=== PATIENT | female | born 1960 | race Two or more races ===

== ENCOUNTER 2018-10-08 12:02 | Emergency (ER) | payer OTHER ==
[2018-10-08 12:20] VITALS: BP 166/88; PULSE 92; TEMP 98.1; BMI 24.1
[2018-10-08] MEDS ORDERED: IBUPROFEN 400 MG TABLET (FP) PO ONE ×2 (13:07→13:16)
--- NOTE | 2018-10-08 13:07 | PDOC ---
History of Present Illness - General Chief Complaint: Pain, Acute Stated Complaint: LT KNEE PAIN Time Seen by Provider: 10/08/18 12:25 History Source: Patient Exam Limitations: Clinical Condition - History of Present Illness Initial Comments: 10/08/18 13:09 Patient with no significant past medical history present with complaint of three -day history of left knee pain and swelling to medial side of left knee status post twist in the on the curbside 3 days ago. Patient reported taking Motrin for pain yesterday. Reported increased pain with ambulation. Denies any other symptoms Timing/Duration: other (3 days) Past History - Past Medical History Allergies/Adverse Reactions: Allergies Allergy/AdvReac Type Severity Reaction Status Date / Time No Known Allergies Allergy Verified 10/08/18 12:13 Home Medications: Ambulatory Orders Diclofenac Sodium [Voltaren] 100 gm TP BID PRN #1 tube 10/08/18 Leg Brace [Knee Brace] 1 each MC DAILY #1 each 10/08/18 Naproxen 500 mg PO BID PRN #20 tablet 10/08/18 COPD: No - Surgical History Gastric Stapling: No - Immunization History Immunization Up to Date: No - Suicide/Smoking/Psychosocial Hx Smoking History: Current every day smoker Have you smoked in the past 12 months: Yes Number of Cigarettes Smoked Daily: 3 Information on smoking cessation initiated: No Hx Alcohol Use: No Drug/Substance Use Hx: No Review of Systems - Review of Systems Able to Perform ROS?: Yes Is the patient limited Croatian proficient: No Constitutional: No: Malaise, Weakness HEENTM: No: Symptoms Reported Respiratory: No: Symptoms reported Cardiac (ROS): No: Symptoms Reported Musculoskeletal: Yes: Symptoms Reported, See HPI, Joint Pain (left knee pain), Joint Swelling (medial aspect of left knee), Muscle Pain (medial aspect of left knee) Integumentary: No: Bruising, Change in Color Neurological: No: Numbness, Paresthesia, Tingling All Other Systems: Reviewed and Negative *Physical Exam - Vital Signs Last Vital Signs Temp Pulse Resp BP Pulse Ox 98.1 F 92 H 16 166/88 97 10/08/18 12:10 10/08/18 12:10 10/08/18 12:10 10/08/18 12:10 10/08/18 12:10 - Physical Exam Comments: 10/08/18 13:15 GENERAL: Well developed, well nourished. Awake and alert in mild acute distress. CARDIOVASCULAR: Regular rate and rhythm. No murmurs, rubs, or gallops. PULMONARY: No evidence of respiratory distress. MUSCULOSKELETAL : mild tenderness medial aspect of left knee no soft tissue swelling over medial aspect of patella of left knee. No bony deformities EXTREMITIES: No cyanosis. No clubbing. No edema. No calf tenderness. SKIN: Warm and dry. Normal capillary refill. No bruising or ecchymosis of left knee. NEUROLOGICAL: Alert, awake, appropriate. No motor deficits in the lower extremities. Gait is normal without ataxia. PSYCHIATRIC: Cooperative. Good eye contact. Appropriate mood and affect. General Appearance: Yes: Nourished, Appropriately Dressed, Mild Distress ED Treatment Course - RADIOLOGY Radiology Studies Ordered: Category Date Time Status KNEE 3 POS-LEFT [RAD] Stat Radiology 10/08/18 12:26 Completed Medical Decision Making - Medical Decision Making 10/08/18 13:12 Patient with no significant past medical history present with complaint of three -day history of left knee pain and swelling to medial side of left knee status post twist in the on the curbside 3 days ago. Patient reported taking Motrin for pain yesterday. Reported increased pain with ambulation. Denies any other symptoms Exam significant for mild soft tissue swelling to medial aspect of left knee with mild tenderness over swelling otherwise normal knee exam. No erythema or joint effusion on exam. X-ray of left knee shows no acute fracture , dislocation or joint swelling. Patient symptoms likely knee sprain. Patient is stable for discharge on naproxen when necessary for pain with knee brace with orthopedist follow-up as needed. Patient advised to apply hot compresses to the as needed for pain and swelling. *DC/Admit/Observation/Transfer Diagnosis at time of Disposition: Sprain of left knee Qualifiers: Encounter type: initial encounter Involved ligament of knee: medial collateral ligament Qualified Code(s): S83.412A - Sprain of medial collateral ligament of left knee, initial encounter - Discharge Dispostion Disposition: HOME Condition at time of disposition: Stable Decision to Admit order: No - Prescriptions Prescriptions: Diclofenac Sodium [Voltaren] 100 gm TP BID PRN #1 tube PRN Reason: knee pain Leg Brace [Knee Brace] 1 each MC DAILY #1 each Naproxen 500 mg PO BID PRN #20 tablet PRN Reason: pain - Referrals Referrals: Sean Crisostomo DO [Staff Physician] - - Patient Instructions Printed Discharge Instructions: How to Use an Elastic Bandage-Knee Sprain, DI for Knee Sprain Additional Instructions: Your x-rays shows no fracture or dislocation. Your pain is likely from knee sprain. Take prescribed medication as needed for pain. use prescribed knee brace daily to help support knee. Follow-up with referred orthopedics if no improvement in 3 days - Post Discharge Activity
== END 2018-10-08 13:18 | disposition home or self-care (01) ==
LOC: JERFT 12:02
PROC: 2W3RXYZ Immobilization of Left Lower Leg using Other Device (ICD-10-PCS; principal; 2018-10-08)
DX: S83.412A Sprain of medial collateral ligament of left knee, initial encounter (principal); X50.1XXA Overexertion from prolonged static or awkward postures, initial encounter; Y93.89 Activity, other specified; Y92.480 Sidewalk as the place of occurrence of the external cause; Y99.8 Other external cause status
CPT/HCPCS: 29530; 73562-TC-LT-FY; 99281-25

== ENCOUNTER 2023-08-08 11:32 | Emergency (ER) | payer OTHER ==
[2023-08-08 12:03] VITALS: BMI 23.1
[2023-08-08] MEDS ORDERED: ONDANSETRON 4 MG/2 ML VIAL ONE (13:20)
[2023-08-08] MEDS: ONDANSETRON 4 MG/2 ML VIAL IVPUSH ONE (13:25)
[2023-08-08] MEDS: FAMOTIDINE 20 MG/50 ML IVPB 20 MG in PREMIX 50 IVPB ONE (13:32)
[2023-08-08] MEDS: SODIUM CHLORIDE 1,000 ML IV ONE (13:32)
[2023-08-08 13:37] LABS: HEMATOCRIT 29.6 % (32.4-45.2); HEMOGLOBIN 8.4 GM/dL (10.7-15.3); MCHC 28.5 g/dl (32.0-36.0); MEAN CELL VOLUME 58.3 fl (80-96); MEAN PLT VOLUME 9.1 fl (7.5-11.1); PLATELET COUNT 625 10^3/uL (134-434); RBC 5.07 M/mm3 (3.60-5.2); RDW 21.7 % (11.6-15.6); WHITE BLOOD COUNT 15.7 K/mm3 (4.0-10.0)
[2023-08-08 13:41] LABS: MCH 16.6 pg (25.7-33.7)
[2023-08-08 13:52] LABS: POTASSIUM 3.7 mmol/L (3.5-5.1)
[2023-08-08] MEDS: ONDANSETRON 4 MG/2 ML VIAL IVPB ONE (13:52)
[2023-08-08 13:56] LABS: ALBUMIN 3.8 g/dl (3.4-5.0); BLOOD UREA NITROGEN 7.9 mg/dL (7-18)
[2023-08-08 13:59] LABS: CREATININE 0.9 mg/dL (0.55-1.3)
[2023-08-08 14:00] LABS: BILIRUBIN,TOTAL 0.4 mg/dL (0.2-1); TOT PROT 7.9 g/dl (6.4-8.2)
[2023-08-08 14:21] LABS: ANISOCYTOSIS 3+; MACROCYTOSIS 0; TARGET CELLS 1+; TEAR DROP CELLS 1+
[2023-08-08 15:44] VITALS: RESP 19
[2023-08-08] MEDS ORDERED: ACETAMINOPHEN INJECTION 100 ML IVPB ONE (16:08)
[2023-08-08] MEDS: ACETAMINOPHEN 1000 MG/100 ML BAG IVPB ONE (16:13)
[2023-08-08 17:40] LABS: PH,URINE 6.5 (5.0-8.0); URINE APPEARANCE Error; URINE BILIRUBIN NEGATIVE (NEGATIVE); URINE COLOR YELLOW; URINE GLUCOSE (UA) NEGATIVE (NEGATIVE); URINE KETONE NEGATIVE (NEGATIVE); URINE LEUK ESTERASE NEGATIVE (NEGATIVE); URINE NITRITE NEGATIVE (NEGATIVE); URINE PROTEIN NEGATIVE (NEGATIVE); URINE UROBILINOGEN 0.2 mg/dL (0.2-1.0)
[2023-08-08 18:56] VITALS: BP 168/88; PULSE 92; TEMP 98.1
== END 2023-08-08 18:57 | disposition home or self-care (01) ==
LOC: JER 11:32
PROC: 3E033GC Introduction of Other Therapeutic Substance into Peripheral Vein, Percutaneous Approach (ICD-10-PCS; principal; 2023-08-08)
PROC: 3E030NZ Introduction of Analgesics, Hypnotics, Sedatives into Peripheral Vein, Open Approach (ICD-10-PCS; 2023-08-08)
PROC: 3E030GC Introduction of Other Therapeutic Substance into Peripheral Vein, Open Approach (ICD-10-PCS; 2023-08-08)
DX: R11.2 Nausea with vomiting, unspecified (principal); R10.9 Unspecified abdominal pain; R50.9 Fever, unspecified; Z20.822 Contact with and (suspected) exposure to COVID-19
CPT/HCPCS: 0241U-QW; 36415; 74177-TC; 80053; 81003; 83690; 84484; 85025; 93005; 93010; 96365; 96375; 99285-25; J0131; Q9967

== ENCOUNTER 2023-08-11 15:40 | Emergency (ER) | payer OTHER ==
[2023-08-11 15:46] VITALS: BP 168/79; PULSE 72; RESP 18; TEMP 98; BMI 23.3
[2023-08-11] MEDS ORDERED: METHOCARBAMOL 500 MG TABLET ONE (19:15)
[2023-08-11] MEDS: METHOCARBAMOL 500 MG TABLET PO ONE (19:17)
== END 2023-08-11 19:23 | disposition home or self-care (01) ==
LOC: JERFT 15:40
DX: M54.2 Cervicalgia (principal); R11.10 Vomiting, unspecified; M25.511 Pain in right shoulder; M79.18 Myalgia, other site
CPT/HCPCS: 99283-25

== ENCOUNTER 2023-09-06 15:01 | Emergency (ER) | payer OTHER ==
[2023-09-06] MEDS ORDERED: RAPID SEQUENCE INTUBATION KIT NR ONE (16:11)
[2023-09-06 16:27] LABS: BASO % 0.5 % (0-2.0); EOS % 0.4 % (0-4.5); HEMATOCRIT 27.9 % (32.4-45.2); HEMOGLOBIN 8.1 GM/dL (10.7-15.3); LYMPH % 14.6 % (8-40); MEAN CELL VOLUME 61.6 fl (80-96); MEAN PLT VOLUME 8.7 fl (7.5-11.1); MONO % 3.6 % (3.8-10.2); NEUT % 80.9 % (42.8-82.8); PLATELET COUNT 557 10^3/uL (134-434); RBC 4.53 M/mm3 (3.60-5.2); RDW 23.6 % (11.6-15.6); WHITE BLOOD COUNT 17.4 K/mm3 (4.0-10.0)
[2023-09-06] MEDS: ROCURONIUM BROMIDE 50 MG/5 ML VIAL IV ONE (16:30)
[2023-09-06] MEDS ORDERED: PROPOFOL 1,000,000 MCG/100 ML VIAL IVPB SCH (16:30)
[2023-09-06] MEDS: PROPOFOL 200 MG/20 ML VIAL IVPUSH ONE (16:30)
[2023-09-06 16:33] LABS: MCH 17.9 pg (25.7-33.7)
[2023-09-06 16:34] LABS: INR 0.95 (0.83-1.09); PROTHROMBIN TIME (PATIENT) 10.7 SEC (9.7-13.0)
[2023-09-06 16:37] LABS: ACTIVATED PTT 25.6 SECONDS (25.2-36.5)
[2023-09-06 16:46] LABS: CHLORIDE 106 mmol/L (98-107); SODIUM 135 mmol/L (136-145)
[2023-09-06 16:48] LABS: CALCIUM 9.1 mg/dL (8.5-10.1)
[2023-09-06 16:49] LABS: ALBUMIN 3.5 g/dl (3.4-5.0); ANION GAP 2 mmol/L (4-13); CO2 27 mmol/L (21-32)
[2023-09-06 16:50] LABS: BLOOD UREA NITROGEN 15.4 mg/dL (7-18); GLUCOSE,RANDOM 167 mg/dL (74-106)
[2023-09-06 16:52] LABS: CREATININE 0.8 mg/dL (0.55-1.3); SGOT/AST 31 U/L (15-37); SGPT/ALT 29 U/L (13-61)
[2023-09-06 16:53] LABS: CHOLESTEROL 176 mg/dL (50-200)
[2023-09-06 16:54] LABS: TOT PROT 7.1 g/dl (6.4-8.2)
[2023-09-06 16:55] LABS: BILIRUBIN,TOTAL 0.3 mg/dL (0.2-1); LDL CHOLESTEROL (ONLY SJRH) 73 mg/dL (5-100)
[2023-09-06 16:56] LABS: ALK PHOS 92 U/L (45-117); HDL CHOLESTEROL 89 mg/dL (40-60)
[2023-09-06] MEDS: NICARDIPINE 25 MG in DEXTROSE 5%-WATER - 240 ML IVPB SCH (16:56)
[2023-09-06] MEDS ORDERED: levETIRAcetam 500 MG/5 ML INJECTION VIAL IVPB ONE (17:01)
[2023-09-06 17:02] LABS: URINE APPEARANCE CLEAR; URINE BILIRUBIN NEGATIVE (NEGATIVE); URINE COLOR YELLOW; URINE GLUCOSE (UA) NEGATIVE (NEGATIVE); URINE KETONE NEGATIVE (NEGATIVE); URINE LEUK ESTERASE NEGATIVE (NEGATIVE); URINE NITRITE NEGATIVE (NEGATIVE); URINE PROTEIN NEGATIVE (NEGATIVE); URINE UROBILINOGEN 0.2 mg/dL (0.2-1.0)
[2023-09-06] MEDS: levETIRAcetam 500 MG/5 ML INJECTION VIAL IVPB ONE (17:11)
[2023-09-06 17:32] VITALS: BP 171/78; PULSE 67; RESP 16
[2023-09-06] MEDS: SODIUM CHLORIDE 1,000 ML IV SCH (17:46)
[2023-09-06 18:00] LABS: ANISOCYTOSIS 2+; MACROCYTOSIS 1+; OVALOCYTE 1+; TARGET CELLS 1+
[2023-09-06 18:01] LABS: PLATELET ESTIMATE INCREASED
[2023-09-06 18:37] VITALS: TEMP 98.6; BMI 24.9
== END 2023-09-06 18:00 | disposition short-term general hospital (02) ==
LOC: JER 15:01
PROC: 0BH17EZ Insertion of Endotracheal Airway into Trachea, Via Natural or Artificial Opening (ICD-10-PCS; principal; 2023-09-06)
PROC: 3E033GC Introduction of Other Therapeutic Substance into Peripheral Vein, Percutaneous Approach (ICD-10-PCS; 2023-09-06)
PROC: 3E033GC Introduction of Other Therapeutic Substance into Peripheral Vein, Percutaneous Approach (ICD-10-PCS; 2023-09-06)
DX: I60.2 Nontraumatic subarachnoid hemorrhage from anterior communicating artery (principal); R41.82 Altered mental status, unspecified
CPT/HCPCS: 36415; 70450-TC; 70496-TC; 70498-TC; 71045-TC-FY; 80053; 80061; 81003; 82550; 82962; 83036; 84484; 85025; 85610; 85730; 86850; 86900; 86901; 93005; 93010; 99285-25; Q9967